=== PATIENT | female | born 1990 | race Caucasian/White ===

== ENCOUNTER 2018-05-19 09:13 | Emergency (ER) | payer OTHER ==
[2018-05-19 09:20] VITALS: BP 128/77
[2018-05-19] MEDS ORDERED: HYDROcodone/APAP 5/325MG 1 TAB TABLET PO ONE (09:45)
[2018-05-19] MEDS ORDERED: PENI500T PO (10:06)
[2018-05-19] MEDS ORDERED: TRAM-48 PO (10:06)
--- NOTE | 2018-05-19 10:06 | PHYS DOC ---
Past History Past Medical History: No Pertinent History Smoking: Cigarettes, Less than 1pk/day Adult General Chief Complaint Chief Complaint: Toothache HPI HPI Patient is a 27 year old female who presents with complaining of tooth pain. Patient states she had a broken left lower tooth 6 days ago while she was at work and has had pain after 1 day as a constant pain that getting worse with chewing and talking. Patient said the pain is sharp and radiated to upper jaw and left ear and had a subjective fever last night. Patient states she has appointment with her dentist in 5 days but her pain was severe and did not get better with [id number] Tylenol and ibuprofen. She smokes cigarettes occasionally. Review of Systems Review of Systems Constitutional: Denies fever or chills [] Eyes: Denies change in visual acuity, redness, or eye pain [] HENT: Denies nasal congestion or sore throat, reports tooth pain [] Respiratory: Denies cough or shortness of breath [] Cardiovascular: No additional information not addressed in HPI [] GI: Denies abdominal pain, nausea, vomiting, bloody stools or diarrhea [] : Denies dysuria or hematuria [] Musculoskeletal: Denies back pain or joint pain [] Integument: Denies rash or skin lesions [] Neurologic: Denies headache, focal weakness or sensory changes [] Endocrine: Denies polyuria or polydipsia [] All other systems were reviewed and found to be within normal limits, except as documented in this note. Current Medications Current Medications Current Medications Medications (Trade) Dose Ordered Sig/Chris Start Time Stop Time Status Last Admin Dose Admin Acetaminophen/ Hydrocodone Bitart (Lortab 5/325) 1 tab 1X ONCE 05/19/18 09:45 05/19/18 10:01 DC 05/19/18 09:58 1 TAB Allergies Allergies Allergies Coded Allergies Type Severity Reaction Last Updated Verified No Known Drug Allergies 05/19/18 No Physical Exam Physical Exam Constitutional: Well developed, well nourished, mild distress, non-toxic appearance. [] HENT: Normocephalic, atraumatic, bilateral external ears normal, oropharynx moist, no oral exudates, nose normal, extensive dental cavities, tooth #18 with fracture and tenderness and edema and erythema of surrounding gum. Eyes: PERRLA, EOMI, conjunctiva normal, no discharge. [] Neck: Normal range of motion, no tenderness, supple, no stridor. [] Cardiovascular:Heart rate regular rhythm, no murmur [] Lungs & Thorax: Bilateral breath sounds clear to auscultation [] Extremities: ROM intact, no edema. [] Neurologic: Alert and oriented X 3, normal motor function, normal sensory function, no focal deficits noted. [] Psychologic: Affect normal, judgement normal, mood normal. [] EKG EKG [] Radiology/Procedures Radiology/Procedures [] Course & Med Decision Making Course & Med Decision Making discharge: I've spoken with the patient and/or caregivers. I've explained the patient's condition, diagnosis and treatment plan based on information available to me at this time. I've answered the patient's and/or caregivers questions and addressed any concerns. The patient and/or caregivers have a good understanding the patient's diagnosis, condition and treatment plan as can be expected at this point. Vital signs have been stabilized. The patient's condition is stable for discharge from the emergency department. The patient will pursue further outpatient evaluation with her primary care provider or other designated consulting physician as outlined in the discharge instructions. Patient and/or caregivers are agreeable to this plan of care and follow-up instructions have been explained in detail. The patient and/or caregivers have received these instructions in written format and expressed understanding of these discharge instructions. The patient and her caregivers are aware that if any significant change in condition or worsening of symptoms should prompt him to immediately return to this of the closest emergency department. If an emergent department is not readily available I would encourage him to call 911. Ellen Disclaimer Dragon Disclaimer This electronic medical record was generated, in whole or in part, using a voice recognition dictation system. Departure Departure: Impression: Primary Impression: Dental abscess Additional Impressions: Tobacco abuse counseling Tobacco abuse Disposition: HOME, SELF-CARE (at 1002) Condition: IMPROVED Referrals: ERYN PETER SEX THERAPIST (PCP) Patient Instructions: Dental Abscess, Dental Caries, Smoking Cessation, Tips For Success Additional Instructions: Quit smoking Follow-up with your dentist as a scheduled in 5 days Return to ER if not getting better Scripts Tramadol Hcl (ULTRAM) 50 Mg Tablet 50 MG PO PRN Q6HRS PRN for PAIN, #20 TAB Prov: JOMAR LOWE MD 05/19/18 Penicillin V Potassium (PENICILLIN V POTASSIUM) 500 Mg Tablet 1 TAB PO QID for Infection, #40 TAB Prov: JOMAR LOWE MD 05/19/18 Problem Qualifiers JOMAR LOWE MD May 19, 2018 10:06
== END 2018-05-19 10:10 | disposition home or self-care (01) ==
LOC: ER 09:13
DX: K04.7 Periapical abscess without sinus (principal); F17.210 Nicotine dependence, cigarettes, uncomplicated; Z71.6 Tobacco abuse counseling
CPT/HCPCS: 99283

== ENCOUNTER 2018-09-14 12:49 | Emergency (ER) | payer BC, OTHER ==
[~2018-09-14] VITALS: Ht 175.3 cm; Wt 77.1 kg
[~2018-09-14 12:49] MED LIST: PENI500T PO; TRAM-48 PO
[2018-09-14 12:57] VITALS: BP 139/78
[2018-09-14] MEDS ORDERED: HYDR-2765 PO (13:06)
[2018-09-14] MEDS ORDERED: LIDO15SO2 MM (13:07)
[2018-09-14] MEDS ORDERED: CLIN300C8 PO (13:07)
--- NOTE | 2018-09-14 13:07 | PHYS DOC ---
Past History Past Medical History: No Pertinent History Past Surgical History: No Surgical History Smoking: Cigarettes, Less than 1pk/day Alcohol Use: None Drug Use: None Adult General Chief Complaint Chief Complaint: TOOTH ACHE OR PAIN [facility] Patient is a 28-year-old female who presents with complaint of dental fracture and tooth pain after cracking her tooth while eating chicken last night. She states that initially it was not very painful but then through the night pain progressively got worse. She rates pain as fairly severe especially if she tries to eat or drink anything. Review of Systems Review of Systems Constitutional: Denies fever or chills [] HENT: Positive dental pain[] Respiratory: Denies cough or shortness of breath [] Cardiovascular: No additional information not addressed in [facility] [] Allergies Allergies Allergies Coded Allergies Type Severity Reaction Last Updated Verified No Known Drug Allergies 05/19/18 No Physical Exam Physical Exam Constitutional: Well developed, well nourished, no acute distress, non-toxic appearance. [] HENT: Normocephalic, atraumatic. His immunization and teeth demonstrates fracture through the lateral aspect of the second mandibular molar on the right. [] Neck: Normal range of motion, no tenderness, supple, no stridor. [] Cardiovascular:Heart rate regular rhythm, no murmur [] Lungs & Thorax: Bilateral breath sounds clear to auscultation [] EKG EKG [] Radiology/Procedures Radiology/Procedures [] Course & Med Decision Making Course & Med Decision Making Pertinent Labs and Imaging studies reviewed. (See chart for details) [] Dragon Disclaimer Dragon Disclaimer This electronic medical record was generated, in whole or in part, using a voice recognition dictation system. Departure Departure: Impression: Primary Impression: Tooth fracture Additional Impression: Pain, dental Disposition: HOME, SELF-CARE Condition: STABLE Referrals: ERYN PETER LEAD SOFTWARE QA ENGINEER (PCP) Patient Instructions: Dental Extraction, Care After, Dental Pain Scripts Clindamycin Hcl (CLINDAMYCIN HCL) 300 Mg Capsule 1 CAP PO TID for prevent infection, #30 CAP Prov: EFRAIN AGUERO Jr. DO 09/14/18 Lidocaine HCl (Lidocaine HCl Viscous) 15 Ml Solution 1 ML MM Q2HR PRN for PAIN, #100 ML Prov: EFRAIN AGUERO Jr. DO 09/14/18 Hydrocodone Bit/Acetaminophen (HYDROCODONE-APAP 7.5-325 ) 1 Each Tablet 1 TAB PO PRN Q6HRS PRN for PAIN, #15 TAB 0 Refills Prov: EFRAIN AGUERO Jr. DO 09/14/18 Problem Qualifiers Primary Impression: Tooth fracture Encounter type: initial encounter Fracture type: closed Qualified Codes: S02.5XXA - Fracture of tooth (traumatic), initial encounter for closed fracture EFRAIN AGUERO Jr., DO September 14, 2018 13:07
== END 2018-09-14 13:15 | disposition home or self-care (01) ==
LOC: ER 12:49
DX: S02.5XXA Fracture of tooth (traumatic), initial encounter for closed fracture (principal); F17.210 Nicotine dependence, cigarettes, uncomplicated; X58.XXXA Exposure to other specified factors, initial encounter; Y93.89 Activity, other specified; Y92.89 Other specified places as the place of occurrence of the external cause; Y99.8 Other external cause status
CPT/HCPCS: 99283

== ENCOUNTER 2019-05-04 22:29 | Emergency (ER) | payer OTHER ==
[~2019-05-04] VITALS: Ht 175.3 cm; Wt 80.3 kg
[~2019-05-04 22:29] MED LIST changes: +CLIN300C8 PO; +HYDR-2765 PO; +LIDO15SO2 MM
--- NOTE | 2019-05-04 22:43 | PHYS DOC ---
Past History Past Medical History: No Pertinent History Past Surgical History: No Surgical History Smoking: Cigarettes, Less than 1pk/day Alcohol Use: None Drug Use: None Adult General Chief Complaint Chief Complaint: left chest wall pain [facility] 28-year-old female presents with left chest wall pain and cough. She has had a cough for several days. Today her cough seemed to be worse and she has developed a left sided chest wall pain. She tells me the pain is basically in the lateral part of her breast. It is somewhat tender to palpation, but hurts mostly with co ughing. She has been coughing up a slightly blood-tinged sputum. She wants to make sure she doesn't have pneumonia or some other significant problem. She denies shortness of breath, fever or chills. Review of Systems Review of Systems Constitutional: Denies fever or chills [] Eyes: Denies change in visual acuity, redness, or eye pain [] HENT: Denies nasal congestion or sore throat [] Respiratory: Denies cough or shortness of breath [] Cardiovascular: No additional information not addressed in HPI [] GI: Denies abdominal pain, nausea, vomiting, bloody stools or diarrhea [] : Denies dysuria or hematuria [] Musculoskeletal: Left chest wall pain[] Integument: Denies rash or skin lesions [] Neurologic: Denies headache, focal weakness or sensory changes [] Endocrine: Denies polyuria or polydipsia [] All other systems were reviewed and found to be within normal limits, except as documented in this note. Allergies Allergies Allergies Coded Allergies Type Severity Reaction Last Updated Verified No Known Drug Allergies 05/19/18 No Physical Exam Physical Exam Constitutional: Well developed, well nourished, no acute distress, non-toxic maddie earance. [] HENT: Normocephalic, atraumatic, bilateral external ears normal, oropharynx moist, no oral exudates, nose congested. [] Eyes: PERRLA, EOMI, conjunctiva normal, no discharge. [] Neck: Normal range of motion, no tenderness, supple, no stridor. [] Cardiovascular:Heart rate regular rhythm, no murmur [] Lungs & Thorax: Mild tenderness of the left lateral chest wall and lateral breast. Bilateral breath sounds clear to auscultation [] Abdomen: Bowel sounds normal, soft, no tenderness, no masses, no pulsatile masses. [] Skin: Warm, dry, no erythema, no rash. [] Back: No tenderness, no CVA tenderness. [] Extremities: No tenderness, no cyanosis, no clubbing, ROM intact, no edema. [] Neurologic: Alert and oriented X 3, normal motor function, normal sensory function, no focal deficits noted. [] Psychologic: Affect normal, judgement normal, mood normal. [] EKG EKG [] Radiology/Procedures Radiology/Procedures [] Impressions: Preliminary interpretation chest x-ray: There doesn't scattered hyperdensity in the lung nick and also developing consolidation in the right lower lobe. Course & Med Decision Making Course & Med Decision Making Pertinent Labs and Imaging studies reviewed. (See chart for details) The patient's chest x-ray could be consistent with atypical pneumonia. I will go and treat her with azithromycin for 5 days. We will give the first dose in the emergency room. She is stable for discharge at this time. [] Dragon Disclaimer Dragon Disclaimer This electronic medical record was generated, in whole or in part, using a voice recognition dictation system. Departure Departure: Impression: Primary Impression: Pneumonia Disposition: HOME/RESIDENCE PRIOR TO ADM Condition: STABLE Referrals: ERYN PETER CONTINUOUS CHURN BUTTERMAKER (PCP) Patient Instructions: Pneumonia, Adult, [id number] Scripts Azithromycin (AZITHROMYCIN TABLET) 250 Mg Tablet 250 MG PO DAILY for ANTI-BIOTIC for 4 Days, #4 TAB 0 Refills Prov: LAUREEN GRIFFIN DO 05/04/19 Problem Qualifiers Primary Impression: Pneumonia Pneumonia type: due to unspecified organism Laterality: right Lung location: lower lobe of lung Qualified Codes: J18.9 - Pneumonia, unspecified organism LAUREEN GRIFFIN DO May 04, 2019 22:43
[2019-05-04] MEDS ORDERED: AZIT250T6 PO (23:17)
--- NOTE | 2019-05-04 23:22 | RAD ---
Exam: Chest 2 views INDICATION: Chest pain TECHNIQUE: Frontal and lateral views the chest Comparisons: None FINDINGS: The cardiomediastinal silhouette and pulmonary vessels are within normal limits. The lung and pleural spaces are clear. IMPRESSION: No acute cardiopulmonary process. Electronically signed by: Goyo Roldan MD (05/04/2019 11:20 PM) [facility]
[2019-05-04 23:29] VITALS: BP 112/55
[2019-05-04] MEDS ORDERED: AZITHROMYCIN 250 MG TABLET. PO ONE (23:30)
== END 2019-05-04 23:29 | disposition home or self-care (01) ==
LOC: ER 22:29
DX: J18.9 Pneumonia, unspecified organism (principal); F17.210 Nicotine dependence, cigarettes, uncomplicated
CPT/HCPCS: 71046; 99284; J0456

== ENCOUNTER 2019-05-22 09:01 | Emergency (ER) | payer OTHER ==
[~2019-05-22] VITALS: Ht 175.3 cm; Wt 81.3 kg
[~2019-05-22 09:01] MED LIST changes: +AZIT250T6 PO
--- NOTE | 2019-05-22 09:50 | RAD ---
Chest radiograph 05/22/2019 9:13 AM INDICATION: Cough with left-sided rib pain COMPARISON: 05/04/2019 TECHNIQUE: Frontal and lateral views of the chest are provided. FINDINGS: The cardiomediastinal silhouette is within normal limits. There are no pleural effusions. There is no pulmonary vascular congestion. There is no pneumothorax. Mild interstitial prominence in the right lower lobe could reflect bronchial wall thickening associated with bronchitis. No significant osseous abnormality is identified. IMPRESSION: Findings are suggestive of mild bronchitis. No new airspace consolidation. Electronically signed by: Tiffanie Dawn MD (05/22/2019 9:47 AM) [id number]
[2019-05-22] MEDS ORDERED: AZIT250T PO (09:59)
--- NOTE | 2019-05-22 09:59 | PHYS DOC ---
Past History Past Medical History: Pneumonia Additional Past Medical Histor: cat scratch fever, shingles Past Surgical History: No Surgical History Additional Past Surgical Histo: lymphnoidectomy in neck Smoking: Cigarettes, Less than 1pk/day Additional Smoking Information: quit 2 yrs ago Alcohol Use: None Drug Use: None Adult General Chief Complaint Chief Complaint: CHEST PAIN-NON CARDIAC NATURE HPI HPI Patient is a 28-year-old female who presented to ER today for evaluation of productive cough with yellow sputum, symptoms started last night , she coughed so much that she started having pain on left side rib. Patient denies any recent travel, no recent operation, she does not smoke. Patient denies any history of blood clot disorder. All other ROS is negative unless otherwise noted in HPI Review of Systems Review of Systems See above Allergies Allergies Allergies Coded Allergies Type Severity Reaction Last Updated Verified No Known Drug Allergies 05/22/19 No Physical Exam Physical Exam See above Constitutional: Well developed, well nourished, no acute distress, non-toxic appearance. [] HENT: Normocephalic, atraumatic, bilateral external ears normal, oropharynx moist, no oral exudates, nose normal. [] Eyes: PERRLA, EOMI, conjunctiva normal, no discharge. [] Neck: Normal range of motion, no tenderness, supple, no stridor. [] Cardiovascular:Heart rate regular rhythm, no murmur [] Lungs & Thorax: Bilateral breath sounds clear to auscultation [] Abdomen: Bowel sounds normal, soft, no tenderness, no masses, no pulsatile masses. [] Skin: Warm, dry, no erythema, no rash. [] Back: No tenderness, no CVA tenderness. [] Extremities: No tenderness, no cyanosis, no clubbing, ROM intact, no edema. [] Neurologic: Alert and oriented X 3, normal motor function, normal sensory function, no focal deficits noted. [] Psychologic: Affect normal, judgement normal, mood normal. [] Current Patient Data Vital Signs Vital Signs Date Time Temp Pulse Resp B/P (MAP) Pulse Ox O2 Delivery O2 Flow Rate FiO2 05/22/19 09:08 98.4 70 20 97 Room Air EKG EKG [] Radiology/Procedures Radiology/Procedures [][address] [address] IMAGING REPORT Signed PATIENT: TOD YOUNG ACCOUNT: [id number] : 1990 LOCATION: ER AGE: 28 SEX: F EXAM STATUS: REG ER ORD. PHYSICIAN: DOROTHY KAT DO REASON: cough, left side ribs pain PROCEDURE: CHEST PA & LATERAL Chest radiograph 05/22/2019 9:13 AM INDICATION: Cough with left-sided rib pain COMPARISON: 05/04/2019 TECHNIQUE: Frontal and lateral views of the chest are provided. FINDINGS: The cardiomediastinal silhouette is within normal limits. There are no pleural effusions. There is no pulmonary vascular congestion. There is no pneumothorax. Mild interstitial prominence in the right lower lobe could reflect bronchial wall thickening associated with bronchitis. No significant osseous abnormality is identified. IMPRESSION: Findings are suggestive of mild bronchitis. No new airspace consolidation. Electronically signed by: Kunal Blanco MD (05/22/2019 9:47 AM) [facility] DICTATED AND SIGNED BY: KUNAL BLANCO MD DATE: 05/22/19946 CC: ERYN PETER FRUIT AND VEGETABLE PACKER; DOROTHY KAT DO ~ Course & Med Decision Making Course & Med Decision Making Pertinent Labs and Imaging studies reviewed. (See chart for details) [] Dragon Disclaimer Dragon Disclaimer This electronic medical record was generated, in whole or in part, using a voice recognition dictation system. Departure Departure: Impression: Primary Impression: Bronchitis Disposition: HOME, SELF-CARE Condition: STABLE Referrals: ERYN PETER NP (PCP) follow up with your doctor sunday for reevaluation Patient Instructions: Acute Bronchitis Scripts Azithromycin (ZITHROMAX) 250 Mg Tablet 1 PKG PO UD for bronchitis, #6 TAB Prov: DOROTHY KAT DO 05/22/19 DOROTHY KAT DO May 22, 2019 09:59
[2019-05-22 10:08] VITALS: BP 128/70
== END 2019-05-22 10:10 | disposition home or self-care (01) ==
LOC: ER 09:01
DX: J40 Bronchitis, not specified as acute or chronic (principal); F17.210 Nicotine dependence, cigarettes, uncomplicated
CPT/HCPCS: 71046; 99284

== ENCOUNTER 2019-06-22 18:52 | Emergency (ER) | payer OTHER ==
[~2019-06-22] VITALS: Ht 175.3 cm; Wt 80.0 kg
[~2019-06-22 18:52] MED LIST changes: +AZIT250T PO; -LIDO15SO2 MM; +LIDO20SO10 MM
--- NOTE | 2019-06-22 18:54 | PHYS DOC ---
Past History Past Medical History: Pneumonia Additional Past Medical Histor: cat scratch fever, shingles Past Surgical History: No Surgical History Additional Past Surgical Histo: lymphnoidectomy in neck Smoking: Cigarettes, Less than 1pk/day Alcohol Use: None Drug Use: None Adult General Chief Complaint Chief Complaint: ".. I got a dental apt. on .. It fracture last week.. they started me on antibiotics.. and I completed them... but pain is again worse.. and got swelling.. " HPI HPI Patient is a 28 year old female who presents with above hx and complaints of fractured molar 32, with surrounding inflammation, facial cellulitis and adeno deyanira at angle Rt. mandible. Pt. has follow up . Pt. has no trismus. Patient has no history immunosuppression, travel, specific ill contacts. Patient does smoke tobacco. Review of Systems Review of Systems Constitutional: Denies fever or chills [] Eyes: Denies change in visual acuity, redness, or eye pain [] HENT: Denies nasal congestion or sore throat []complaints of dental pain and facial swelling Respiratory: Denies cough or shortness of breath [] Cardiovascular: No additional information not addressed in HPI [] GI: Denies abdominal pain, nausea, vomiting, bloody stools or diarrhea [] : Denies dysuria or hematuria [] Musculoskeletal: Denies back pain or joint pain [] Integument: Denies rash or skin lesions [] Neurologic: Denies headache, focal weakness or sensory changes [] Endocrine: Denies polyuria or polydipsia [] All other systems were reviewed and found to be within normal limits, except as documented in this note. Family History Family History Noncontributory Current Medications Current Medications See nursing for home meds Allergies Allergies Allergies Coded Allergies Type Severity Reaction Last Updated Verified No Known Drug Allergies 05/22/19 No Physical Exam Physical Exam Constitutional: In acute distress, non-toxic appearance. [] HENT: Normocephalic, bilateral external ears normal, oropharynx moist, no oral exudates, nose normal. []Fraction and decay tooth at 32. Adenopathy at ankle jaw. Facial swelling. Eyes: PERRLA, EOMI, conjunctiva normal, no discharge. [] Neck: Normal range of motion, no tenderness, supple, no stridor. [] Cardiovascular:Heart rate regular rhythm, no murmur [] Lungs & Thorax: Bilateral breath sounds equal apex scattered wheezes on auscultation [] Abdomen: Bowel sounds normal, soft, no tenderness, no masses, no pulsatile masses. [] Skin: Warm, dry, no erythema, no rash. [] Back: No tenderness, no CVA tenderness. [] Extremities: No tenderness, no cyanosis, no clubbing, ROM intact, no edema. [] Neurologic: Alert and oriented X 3, normal motor function, normal sensory function, no focal deficits noted. [] Psychologic: Affect anxious, judgement normal, mood normal. [] EKG EKG [] Radiology/Procedures Radiology/Procedures [] Course & Med Decision Making Course & Med Decision Making Pertinent Labs and Imaging studies reviewed. (See chart for details), Patient rinse mouth with Listerine 4 times a day. Patient must keep follow-up with oral surgeon or dentist. Take Tylenol and ibuprofen for pain. For marked pain may take Vicoprofen up 4 times a day. Take Keflex 500 mg 3 times a day. She encouraged to stop smoking. Impression; 1. Dental pain 2. Fractured tooth [id number] 3. Facial Cellulitis [] Dragon Disclaimer Dragon Disclaimer This electronic medical record was generated, in whole or in part, using a voice recognition dictation system. Departure Departure: Disposition: 01 HOME/RESIDENCE PRIOR TO ADM Condition: STABLE Referrals: ERYN PETER STRATEGIC DEBRIEFING SPECIALIST (PCP) Scripts Cephalexin (KEFLEX) 500 Mg Capsule 500 MG PO TID for dental infection for 10 Days, BOTTLE Prov: CAYLA YEN MD 06/22/19 Hydrocodone/Ibuprofen (HYDROCODONE-IBUPROFEN 7.5-200 ) 1 Each Tablet 1 TAB PO PRN Q6HRS PRN for PAIN, #30 TAB 0 Refills Prov: CAYLA YEN MD 06/22/19 Dragkaye Disclaimer This chart was dictated in whole or in part using Voice Recognition software in a busy, high-work load, and often noisy Emergency Department environment. It may contain unintended and wholly unrecognized errors or omissions. CAYLA YEN MD Jun 22, 2019 18:54
[2019-06-22 19:03] VITALS: BP 112/70
[2019-06-22] MEDS ORDERED: HYDR-1179 PO (19:08)
[2019-06-22] MEDS ORDERED: CEPH-264 PO (19:08)
[2019-06-22] MEDS ORDERED: cefTRIAXone IM 1 GM VIAL IM ONE (19:15)
[2019-06-22] MEDS ORDERED: KETOROLAC 60 MG/2 ML VIAL. IM ONE (19:45)
[2019-06-22 20:07] LABS: BACTERIA,URINE FEW /HPF (0-FEW); BILIRUBIN,URINE NEG (NEG); CLARITY,URINE HAZY; COLOR,URINE AMBER; GLUCOSE,URINE NEG (NEG); NITRITE,URINE NEG (NEG); SQUAMOUS EPITHELIAL CELL,UR MANY /LPF; UROBILINOGEN,URINE 0.2 mg/dL (0.2 mg/dL); WBC,URINE 0 /HPF (0-4)
[2019-06-22 20:13] LABS: BARBITURATES NEG (NEG); BENZODIAZEPINES NEG (NEG); CANNABINOIDS NEG (NEG); COCAINE NEG (NEG); METHADONE NEG (NEG); OPIATES NEG (NEG); PHENCYCLIDINE NEG (NEG)
[2019-06-22 20:15] LABS: AMPHETAMINE/METHAMPHETAMINE NEG (NEG)
== END 2019-06-22 19:59 | disposition home or self-care (01) ==
LOC: ER 18:52
DX: S02.5XXA Fracture of tooth (traumatic), initial encounter for closed fracture (principal); L03.211 Cellulitis of face; F17.210 Nicotine dependence, cigarettes, uncomplicated; X58.XXXA Exposure to other specified factors, initial encounter; Y93.89 Activity, other specified; Y92.89 Other specified places as the place of occurrence of the external cause; Y99.8 Other external cause status
CPT/HCPCS: 36415; 80307; 81001; 81025; 96372; 99284; J0696; J1885

== ENCOUNTER 2019-10-24 20:35 | Emergency (ER) | payer OTHER ==
[~2019-10-24] VITALS: Ht 175.3 cm; Wt 79.2 kg
[~2019-10-24 20:35] MED LIST changes: +CEPH-264 PO; +HYDR-1179 PO
--- NOTE | 2019-10-24 20:40 | PHYS DOC ---
Past History Past Medical History: Pneumonia, Other Additional Past Medical Histor: cat scratch fever, shingles Past Surgical History: No Surgical History Additional Past Surgical Histo: lymphnoidectomy in neck Smoking: Cigarettes, Less than 1pk/day Alcohol Use: None Drug Use: None General Adult HPI: HPI: ".. I am not sure whats going on.. I got a negative test.. but I ve been bleeding ever since my last period.. been bleeding for three weeks now.. almost like a period.. .and for last week. ..I ve had bad abdomen pain.. I cant get in to see my CREATIVE CONSULTANT ... Dr. Peter... ".." until the end of November..." Patient is a 29 year old female who presents with above hx and complaints of dysfunctional vaginal bleeding x 3 weeks. Pt. denies previous history of dysfunctional uterine bleeding. No history of ovarian cyst or endometriosis. Patient rates her abdomen pain 20 out of 10 which is been present for the last week. Does to pelvic exams regularly since uterine cancer runs in her family. Patient did get HPV vaccination with last pregnancies she has had 6 pregnancies and 1 miscarriage. Vaginal births.x5. Patient denies any history use of anti- coagulants or [id number] health meds that may increase bleeding. Patient last approximately 2 years ago. Patient has had 5 lifetime sex partn ers. No history of STDs. No history of trauma. No history immune suppression. No history of recent travel outside the [place] area. No specific ill contacts. Pt .follows with Dr. Peter . Review of Systems: Review of Systems: Constitutional: Denies fever or chills Eyes: Denies change in visual acuity HENT: Denies nasal congestion or sore throat Respiratory: Denies cough or shortness of breath Cardiovascular: Denies chest pain or edema GI: Complains of abdominal pain and vaginal bleeding. Denies, nausea, vomiting, bloody stools or diarrhea : Denies dysuria Musculoskeletal: Denies back pain or joint pain Integument: Denies rash Neurologic: Denies headache, focal weakness or sensory changes Endocrine: Denies polyuria or polydipsia Lymphatic: Denies swollen glands Psychiatric: Denies depression or anxiety Heart Score: Risk Factors: Risk Factors: DM, Current or recent (<one month) smoker, HTN, HLP, family history of CAD, obesity. Risk Scores: Score 0 - 3: 2.5% MACE over next 6 weeks - Discharge Home Score 4 - 6: 20.3% MACE over next 6 weeks - Admit for Clinical Observation Score 7 - 10: 72.7% MACE over next 6 weeks - Early Invasive Strategies Family History: Family History: Uterine cancer and cervical cancer in mother and sister. Current Medications: Current Meds: See nursing for home meds Allergies: Allergies: Allergies Coded Allergies Type Severity Reaction Last Updated Verified No Known Drug Allergies 05/22/19 No Physical Exam: PE: Constitutional: in acute distress, non-toxic appearance. [] HENT: Normocephalic, atraumatic, bilateral external ears normal, oropharynx moist, no oral exudates, nose normal. [] Eyes: PERRLA, EOMI, conjunctiva normal, no discharge. [] Neck: Normal range of motion, no tenderness, supple, no stridor. [] Cardiovascular:Heart rate regular rhythm, no murmur [] Lungs & Thorax: Bilateral breath sounds equal at apexes with few basilar wheezes on auscultation [] Abdomen: Bowel sounds normal, soft, pelvic tenderness, no masses, no pulsatile masses. [] Cervical motion tenderness, blood coming from os. Boggy cervix. Skin: Warm, dry, no erythema, no rash. Tattoos. Back: No tenderness, no CVA tenderness. [] Extremities: No tenderness, no cyanosis, no clubbing, ROM intact, no edema. [] Neurologic: Alert and oriented X 3, normal motor function, normal sensory function, no focal deficits noted. [] Psychologic: Affect normal, judgement normal, mood normal. [] EKG: EKG: [] Radiology/Procedures: Radiology/Procedures: [][address] [address] IMAGING REPORT Signed PATIENT: TOD YOUNG ACCOUNT: [id number] : 1990 LOCATION: ER AGE: 29 SEX: F EXAM STATUS: REG ER ORD. PHYSICIAN: CAYLA YEN MD REASON: Abdomen pain x 1 week, vaginal bleeding x 3 weeks PROCEDURE: CT ABD PELV W/ORAL&IV CONTRAST Study: CT abdomen/pelvis with intravenous contrast Indication: Abdominal pain. Vaginal bleeding. Comparison: None. Technique: Helical CT imaging performed of the abdomen and pelvis after the intravenous administration of 74 cc Omnipaque 300 contrast. Sagittal and coronal reformats were obtained. One or more of the following individualized dose reduction techniques were utilized for this examination: 1. Automated exposure control 2. Adjustment of the mA and/or kV according to patient size 3. Use of iterative reconstruction technique. Findings: Unremarkable visualized chest. The liver is prominent in size. Upper limits of normal size of the spleen as well. Unremarkable adrenal glands and pancreas. Mild gallbladder wall thickening but this could be related to partial collapse. No calcified gallstones. Normal caliber of the biliary tree. Unremarkable kidneys. No hydroureteronephrosis. Circumferential wall thickening of the urinary bladder that is mild likely in part related to underdistention. Heterogeneous attenuation and a somewhat expanded appearance of the uterine cervix such as seen on image 35 series 4. The vaginal cuff appears somewhat edematous as well and there is thin enhancement along the vaginal wall. No dominant ovarian cyst or mass. The right ovary is slightly larger than left but within normal limits for size. Mild volume well-formed stool within the colon. Normal appendix. Within normal limits small bowel and stomach. Unremarkable major vasculature. No pathologically enlarged lymph nodes. Mild haziness of the fat surrounding the right ovary, along the uterine cervix and vaginal cuff. Trace if any free pelvic fluid. Within normal limits osseous structures. Impression: 1. Boggy appearance of the uterine cervix and vaginal cuff with heterogeneous attenuation in these regions. There is also a greater degree of enhancement along the vaginal wall than typically seen. Mild asymmetric prominence of the right ovary relative to the left. The collective appearance is nonspecific and could be be related to the patient's menstrual stage but an infectious process such as pelvic inflammatory disease/cervicitis is not excluded. 2. Upper limits of normal size of the liver and spleen. 3. Borderline wall thickening of the gallbladder but this could be related to underdistention and there are no calcified gallstones or additional findings that would suggest acute cholecystitis. Electronically signed by: GOOD HINES MD (10/24/2019 11:09 PM) [id number] DICTATED AND SIGNED BY: GOOD HINES MD DATE: 10/24/19 2309 CC: ERYN PETER EXECUTIVE DIRECTOR [employer]; CAYLA YEN MD ~ Course & Med Decision Making: Course & Med Decision Making Pertinent Labs and Imaging studies reviewed. (See chart for details) Continue pad counts. Follow up pending FSH, Progesterone, TSH levels with primary and CREATIVE CONSULTANT. Advised she may need at endometrial biopsy. May also need a course of control. Must follow-up and review labs with primary care. T ada Keflex 500x3 times a day. Practice safe sex and pelvic rest. May need course of oral control . Note: Pt. left with Vicoprofen Rx. Impression: 1. Dysfunctional Uterine Bleeding 2. Cervicitis 3. Pelvic Pain [] Dragon Disclaimer: Dragon Disclaimer: This electronic medical record was generated, in whole or in part, using a voice recognition dictation system. Departure Departure: Disposition: HOME/RESIDENCE PRIOR TO ADM Condition: STABLE Referrals: ERYN PETER EXECUTIVE DIRECTOR [employer] (PCP) Scripts Hydrocodone/Ibuprofen (HYDROCODONE-IBUPROFEN 7.5-200 ) 1 Each Tablet 1 TAB PO PRN Q6HRS PRN for PAIN, #30 TAB 0 Refills Prov: CAYLA YEN MD 10/25/19 Cephalexin (KEFLEX) 500 Mg Capsule 500 MG PO TID for cervicitis for 10 Days, #30 CAP Prov: CAYLA YEN MD 10/24/19 Justification of Admission: Justification of Admission: Justification of Admission Dx: N/A Dragon Disclaimer This chart was dictated in whole or in part using Voice Recognition software in a busy, high-work load, and often noisy Emergency Department environment. It may contain unintended and wholly unrecognized errors or omissions. Dragon Disclaimer This chart was dictated in whole or in part using Voice Recognition software in a busy, high-work load, and often noisy Emergency Department environment. It may contain unintended and wholly unrecognized errors or omissions. Dragon Disclaimer This chart was dictated in whole or in part using Voice Recognition software in a busy, high-work load, and often noisy Emergency Department environment. It may contain unintended and wholly unrecognized errors or omissions. CAYLA YEN MD Oct 24, 2019 20:40
[2019-10-24 21:13] LABS: BARBITURATES NEG (NEG); BENZODIAZEPINES NEG (NEG); CANNABINOIDS NEG (NEG); COCAINE NEG (NEG); METHADONE NEG (NEG); OPIATES NEG (NEG); PHENCYCLIDINE NEG (NEG)
[2019-10-24 21:16] LABS: CLARITY,URINE BLOODY; COLOR,URINE RED
[2019-10-24 21:18] LABS: BACTERIA,URINE 0 /HPF (0-FEW); RBC,URINE TNTC /HPF (0-2); SQUAMOUS EPITHELIAL CELL,UR MOD /LPF; WBC,URINE OCC /HPF (0-4)
[2019-10-24 21:20] LABS: AMPHETAMINE/METHAMPHETAMINE NEG (NEG)
[2019-10-24] MEDS ORDERED: IOHEXOL 240 MG/ML 50ML VIAL. PO ONE (21:30)
[2019-10-24] MEDS ORDERED: IOHEXOL 300 MG/ML 75 ML VIAL. IV ONE (21:30)
[2019-10-24 21:36] LABS: BASO # 0.1 x10^3/uL (0.0-0.2); BASO % 1 % (0-3); EOS # 0.4 x10^3/uL (0.0-0.7); EOS % 4 % (0-3); HEMATOCRIT 41.9 % (36.0-47.0); HEMOGLOBIN 14.1 g/dL (12.0-15.5); LYMPH % 32 % (24-48); MEAN CORPUSCULAR HEMOGLOBIN 30 pg (25-35); MEAN CORPUSCULAR HGB CONC 34 g/dL (31-37); MEAN CORPUSCULAR VOLUME 90 fL (79-100); MONO # 0.6 x10^3/uL (0.0-1.1); MONO % 6 % (0-9); NEUT # 5.3 x10^3uL (1.8-7.7); NEUT % 57 % (31-73); PLATELET COUNT 274 x10^3/uL (140-400); RED BLOOD COUNT 4.68 x10^6/uL (3.50-5.40); RED CELL DISTRIBUTION WIDTH 13.2 % (11.5-14.5); WHITE BLOOD COUNT 9.4 x10^3/uL (4.0-11.0)
[2019-10-24 21:43] LABS: CALCIUM 8.9 mg/dL (8.5-10.1); CREATININE 0.8 mg/dL (0.6-1.0); POTASSIUM 3.8 mmol/L (3.5-5.1)
[2019-10-24 21:49] LABS: ALBUMIN 3.8 g/dL (3.4-5.0); DIRECT BILIRUBIN 0.1 mg/dL (0.0-0.2); TOTAL BILIRUBIN 0.2 mg/dL (0.2-1.0); TOTAL PROTEIN 7.7 g/dL (6.4-8.2)
--- NOTE | 2019-10-24 23:12 | RAD ---
Study: CT abdomen/pelvis with intravenous contrast Indication: Abdominal pain. Vaginal bleeding. Comparison: None. Technique: Helical CT imaging performed of the abdomen and pelvis after the intravenous administration of 74 cc Omnipaque 300 contrast. Sagittal and coronal reformats were obtained. One or more of the following individualized dose reduction techniques were utilized for this examination: 1. Automated exposure control 2. Adjustment of the mA and/or kV according to patient size 3. Use of iterative reconstruction technique. Findings: Unremarkable visualized chest. The liver is prominent in size. Upper limits of normal size of the spleen as well. Unremarkable adrenal glands and pancreas. Mild gallbladder wall thickening but this could be related to partial collapse. No calcified gallstones. Normal caliber of the biliary tree. Unremarkable kidneys. No hydroureteronephrosis. Circumferential wall thickening of the urinary bladder that is mild likely in part related to underdistention. Heterogeneous attenuation and a somewhat expanded appearance of the uterine cervix such as seen on image 35 series 4. The vaginal cuff appears somewhat edematous as well and there is thin enhancement along the vaginal wall. No dominant ovarian cyst or mass. The right ovary is slightly larger than left but within normal limits for size. Mild volume well-formed stool within the colon. Normal appendix. Within normal limits small bowel and stomach. Unremarkable major vasculature. No pathologically enlarged lymph nodes. Mild haziness of the fat surrounding the right ovary, along the uterine cervix and vaginal cuff. Trace if any free pelvic fluid. Within normal limits osseous structures. Impression: 1. Boggy appearance of the uterine cervix and vaginal cuff with heterogeneous attenuation in these regions. There is also a greater degree of enhancement along the vaginal wall than typically seen. Mild asymmetric prominence of the right ovary relative to the left. The collective appearance is nonspecific and could be be related to the patient's menstrual stage but an infectious process such as pelvic inflammatory disease/cervicitis is not excluded. 2. Upper limits of normal size of the liver and spleen. 3. Borderline wall thickening of the gallbladder but this could be related to underdistention and there are no calcified gallstones or additional findings that would suggest acute cholecystitis. Electronically signed by: GOOD HINES MD (10/24/2019 11:09 PM) [id number]
[2019-10-24] MEDS ORDERED: AZITHROMYCIN 250 MG TABLET. PO ONE (23:30)
[2019-10-24] MEDS ORDERED: ONDANSETRON PF 4 MG/2 ML VIAL. IVP ONE (23:30)
[2019-10-24] MEDS ORDERED: metroNIDAZOLE 500 MG TABLET PO ONE (23:30)
[2019-10-24] MEDS ORDERED: CEPH-264 PO (23:34)
[2019-10-24] MEDS ORDERED: cefTRIAXone SODIUM 1 GM VIAL ONE (23:37)
[2019-10-24] MEDS ORDERED: IV NORMAL SALINE 50ML 50 ML ONE (23:37)
[2019-10-24] MEDS ORDERED: MORPHINE SULFATE 10 MG/ML SYRINGE. SQ ONE (23:45)
[2019-10-25 00:26] VITALS: BP 104/63
[2019-10-25] MEDS ORDERED: HYDR-1179 PO (00:54)
[2019-10-25 15:08] LABS: FSH 6.7 mIU/mL (.); PROGESTERONE <0.1 ng/mL (.)
[2019-10-27 18:07] LABS: CHLAMYDIA PROBE Negative (Negative)
== END 2019-10-25 01:00 | disposition home or self-care (01) ==
LOC: ER 20:35
DX: N93.8 Other specified abnormal uterine and vaginal bleeding (principal); N72 Inflammatory disease of cervix uteri; F17.210 Nicotine dependence, cigarettes, uncomplicated
CPT/HCPCS: 36415; 74177; 80048; 80076; 80307; 81001; 81025; 83001; 84144; 84146; 84443; 84702; 85025; 85610; 85730; 86850; 86900; 86901; 87491; 87591; 96365; 96372; 96375; 99285; J0456; J0696; J2270; J2405; Q0111; Q9966; Q9967

== ENCOUNTER 2020-03-16 19:06 | Emergency (ER) | payer OTHER ==
[~2020-03-16] VITALS: Ht 175.3 cm; Wt 67.8 kg
[2020-03-16 19:20] VITALS: BP 112/67
[2020-03-16] MEDS ORDERED: HYDR-3165 PO (19:36)
[2020-03-16] MEDS ORDERED: PENI500T PO (19:36)
--- NOTE | 2020-03-16 19:38 | PHYS DOC ---
Past History Past Medical History: Cancer, Pneumonia, Other Additional Past Medical Histor: cat scratch fever, shingles Past Surgical History: Other Additional Past Surgical Histo: lymphnoidectomy in neck Smoking: Cigarettes, Less than 1pk/day Alcohol Use: Rarely Drug Use: None Adult General Chief Complaint Chief Complaint: DENTAL PROBLEM HPI HPI Patient is a 29-year-old female currently undergoing chemotherapy and radiation for ovarian and cervical cancer presents to the emergency room with complaints of left upper dental pain. She has an appointment next Sunday with a dentist. Was just cleared by her oncologist to start dental work. She reports bit down on something and the pain has worsened today. Review of Systems Review of Systems Constitutional: Denies fever or chills [] Eyes: Denies change in visual acuity, redness, or eye pain [] HENT: Denies nasal congestion or sore throat [] Respiratory: Denies cough or shortness of breath [] Cardiovascular: No additional information not addressed in HPI [] GI: Denies abdominal pain, nausea, vomiting, bloody stools or diarrhea [] : Denies dysuria or hematuria [] Musculoskeletal: Denies back pain or joint pain [] Integument: Denies rash or skin lesions [] Neurologic: Denies headache, focal weakness or sensory changes [] Endocrine: Denies polyuria or polydipsia [] All other systems were reviewed and found to be within normal limits, except as documented in this note. Allergies Allergies Allergies Coded Allergies Type Severity Reaction Last Updated Verified No Known Drug Allergies 05/22/19 No Physical Exam Physical Exam Constitutional: Well developed, well nourished, no acute distress, non-toxic appearance. [] HENT: Normocephalic, atraumatic, bilateral external ears normal, oropharynx moist, no oral exudates, nose normal, left upper molar with large dental yuan, no evidence of abscess. [] Eyes: PERRLA, EOMI, conjunctiva normal, no discharge. [] Neck: Normal range of motion, no tenderness, supple, no stridor. No cervical lymphadenopathy [] Cardiovascular:Heart rate regular rhythm, no murmur [] Lungs & Thorax: Bilateral breath sounds clear to auscultation [] Skin: Warm, dry, no erythema, no rash. [] Extremities: No tenderness, no cyanosis, no clubbing, ROM intact, no edema. [] Neurologic: Alert and oriented X 3, normal motor function, normal sensory function, no focal deficits noted. [] Psychologic: Affect normal, judgement normal, mood normal. [] EKG EKG [] Radiology/Procedures Radiology/Procedures [] Heart Score Risk Factors: Risk Factors: DM, Current or recent (<one month) smoker, HTN, HLP, family history of CAD, obesity. Risk Scores: Risk Factors: DM, Current or recent (<one month) smoker, HTN, HLP, family history of CAD, obesity. Course & Med Decision Making Course & Med Decision Making Pertinent Labs and Imaging studies reviewed. (See chart for details) [Patient to start antibiotics, short-term prescription for pain medication as well, may take ibuprofen in between for more pain control. Patient tells me her oncologist has allowed her to take only ibuprofen or [place] for pain control due to the medications she is currently receiving. She does not currently have prescriptions for either 1 of these medications.] Dragon Disclaimer Dragon Disclaimer This electronic medical record was generated, in whole or in part, using a voice recognition dictation system. Departure Departure: Impression: Primary Impression: Toothache Disposition: HOME SELF CARE/HOMELESS Referrals: [facility] (PCP) Patient Instructions: Toothache-Brief Additional Instructions: Follow-up with dentist on Sunday as already scheduled. Scripts Hydrocodone Bit/Acetaminophen (NORCO 5-325 TABLET) 1 Each Tablet 1-2 TAB PO Q4-6HRS for pain, #10 TAB Prov: MACIE BUNDY APRN 03/16/20 Penicillin V Potassium (PENICILLIN V POTASSIUM) 500 Mg Tablet 1 TAB PO QID for dental pain, #40 TAB Prov: MACIE BUNDY APRN 03/16/20 MACIE BUNDY APRN Mar 16, 2020 19:38
== END 2020-03-16 20:40 | disposition home or self-care (01) ==
LOC: ER 19:06
DX: K02.9 Dental caries, unspecified (principal); F17.210 Nicotine dependence, cigarettes, uncomplicated
CPT/HCPCS: 99283

== ENCOUNTER 2020-03-28 20:07 | Emergency (ER) | payer OTHER ==
[~2020-03-28] VITALS: Ht 175.3 cm; Wt 70.1 kg
[~2020-03-28 20:07] MED LIST changes: +HYDR-3165 PO
[2020-03-28] MEDS ORDERED: IV NORMAL SALINE 1,000ML 1,000 ML IV ONE (20:30)
--- NOTE | 2020-03-28 20:43 | PHYS DOC ---
Past History Past Medical History: Cancer, Pneumonia, Other Additional Past Medical Histor: ON CHEMO FOR OVARIAN AND CERVICAL CA Past Surgical History: No Surgical History Additional Past Surgical Histo: lymphnoidectomy in neck Smoking: Cigarettes, Less than 1pk/day Alcohol Use: None Drug Use: None General Adult EDM: Chief Complaint: FLANK PAIN HPI: HPI: 29-year-old female presents with left flank pain. This started yesterday and felt like a like fluttering. It is now a moderate intensity sharp pain. It is intermittent. It is worse with deep breathing. Patient has history of gynecological cancers. She called her oncologist who asked her to come to the emergency room for evaluation. They could not get a CT scan ordered soon enough. Patient denies fever or chills. She denies falls or trauma. Review of Systems: Review of Systems: Constitutional: Denies fever or chills Eyes: Denies change in visual acuity HENT: Denies nasal congestion or sore throat Respiratory: Denies cough or shortness of breath Cardiovascular: Denies chest pain or edema GI: Denies abdominal pain, nausea, vomiting, bloody stools or diarrhea : Denies dysuria Musculoskeletal: Left flank pain Integument: Denies rash Neurologic: Denies headache, focal weakness or sensory changes Endocrine: Denies polyuria or polydipsia Lymphatic: Denies swollen glands Psychiatric: Denies depression or anxiety Current Medications: Current Meds: Current Medications Medications (Trade) Dose Ordered Sig/Chris Start Time Stop Time Status Last Admin Dose Admin Sodium Chloride 1,000 ml @ 1,000 mls/hr 1X ONCE 03/28/20 20:30 03/28/20 21:29 Allergies: Allergies: Allergies Coded Allergies Type Severity Reaction Last Updated Verified No Known Drug Allergies 05/22/19 No Physical Exam: PE: Constitutional: Well developed, well nourished, no acute distress, non-toxic appearance. [] HENT: Normocephalic, atraumatic, bilateral external ears normal, oropharynx moist, no oral exudates, nose normal. [] Eyes: PERRLA, EOMI, conjunctiva normal, no discharge. [] Neck: Normal range of motion, no tenderness, supple, no stridor. [] Cardiovascular: Heart rate regular rhythm, no murmur [] Lungs & Thorax: Bilateral breath sounds clear to auscultation [] Abdomen: Bowel sounds normal, soft, no tenderness, no masses, no pulsatile masses. [] Skin: Warm, dry, no erythema, no rash. [] Back: No tenderness, mild left CVA tenderness. [] Extremities: No tenderness, no cyanosis, no clubbing, ROM intact, no edema. [] Neurologic: Alert and oriented X 3, normal motor function, normal sensory function, no focal deficits noted. [] Psychologic: Affect normal, judgement normal, mood normal. [] Current Patient Data: Labs: Laboratory Tests Test 03/28/20 20:29 POC Urine HCG, Qualitative hcg negative (Negative) EKG: EKG: [] Radiology/Procedures: Radiology/Procedures: [] Impressions: Exam: CT of abdomen and pelvis with contrast INDICATION: Flank pain TECHNIQUE: Sequential axial images through the abdomen and pelvis obtained following the administration of 75 mL of Omni 300 IV contrast. Sagittal and coronal reformatted images were reconstructed from the axial data and reviewed. Comparisons: 10/24/2019 FINDINGS: Heart size is normal. No pericardial effusion. Strandy opacities at the dependent portion lungs likely representing atelectasis. No pleural effusion. Liver, spleen, pancreas, gallbladder and adrenals are unremarkable. No perinephric inflammation or hydronephrosis. No renal or ureteral calculi are identified. Bladder is decompressed not well evaluated. Uterus is nonenlarged. Fluid noted within the endometrial canal. Large and small bowel are unremarkable. Appendix is normal. No free abdominal air or fluid. No obstruction. Abdominal aorta has a normal course and caliber. Abdominal vasculature is patent. No enlarged abdominal lymph nodes are identified. No suspicious osseous lesions or acute fractures. IMPRESSION: 1. Fluid density noted within the endometrium which is nonspecific. Recommend correlation with ultrasound. 2. No renal or ureteral calculi. No evidence for obstructive uropathy. Exposure: One or more of the following in the visualized dose reduction techniques were utilized for this examination: 1. Automated exposure control 2. Adjustment of the MA and/or KV according to patient size 3. Use of iterative of reconstructive technique Electronically signed by: Gisel Feldman MD (03/28/2020 9:25 PM) [id number] DICTATED AND SIGNED BY: GISEL FELDMAN MD DATE: 03/28/202124 CC: LAUREEN GRIFFIN DO; PCP,NO ~ Exam: Ultrasound pelvis Indication: Fluid in the endometrium Technique: Real-time grayscale and color Doppler images of the pelvis were obtained by the department investor relations manager. Comparisons: None FINDINGS: Uterus measures 7.5 x 6.2 x 4.5 cm. There is a moderate amount of fluid noted within the endometrium. Right ovary measures 2.8 x 2.3 x 2.2 cm. Left ovary measures 1.9 x 1.4 x 1.2 cm. Vascular flow identified within the ovaries bilaterally. No free fluid. IMPRESSION: 1. Simple appearing fluid within the endometrium. Given history of malignancy treatment this could be treatment related. 2. Normal sonographic appearance of the ovaries. Electronically signed by: Gisel Feldman MD (03/28/2020 10:55 PM) [id number] DICTATED AND SIGNED BY: GISEL FELDMAN MD DATE: 03/28/202254 CC: LAUREEN GRIFFIN DO; PCP,NO ~ Heart Score: Risk Factors: Risk Factors: DM, Current or recent (<one month) smoker, HTN, HLP, family history of CAD, obesity. Risk Scores: Score 0 - 3: 2.5% MACE over next 6 weeks - Discharge Home Score 4 - 6: 20.3% MACE over next 6 weeks - Admit for Clinical Observation Score 7 - 10: 72.7% MACE over next 6 weeks - Early Invasive Strategies Course & Med Decision Making: Course & Med Decision Making Pertinent Labs and Imaging studies reviewed. (See chart for details) The patient's labs are unremarkable. Her urinalysis is negative for infection but does show blood. CT scan shows fluid in the uterus. An ultrasound was recommended. See official read for more details. An ultrasound was ordered. The ultrasound showed a simple fluid in the uterus. No other significant abnormality seen. See official read for more details. Not exactly sure what is causing the patient's pain. Have given her a couple doses of pain medication. She is stable for discharge at this time. [] Dragon Disclaimer: Dragon Disclaimer: This electronic medical record was generated, in whole or in part, using a voice recognition dictation system. Departure Departure: Impression: Primary Impression: Left flank pain Disposition: 01 DC HOME SELF CARE/HOMELESS Condition: STABLE Referrals: PCP,NO (PCP) Patient Instructions: Flank Pain, [id number] LAUREEN GRIFFIN DO Mar 28, 2020 20:43
[2020-03-28] MEDS ORDERED: IOHEXOL 300 MG/ML 75 ML VIAL. IV ONE (20:45)
[2020-03-28] MEDS ORDERED: CONTRAST GIVEN. MC PRN (21:00)
[2020-03-28 21:03] LABS: BACTERIA,URINE 0 /HPF (0-FEW); BILIRUBIN,URINE NEG (NEG); CLARITY,URINE CLEAR; COLOR,URINE YELLOW; GLUCOSE,URINE NEG (NEG); NITRITE,URINE NEG (NEG); RBC,URINE 20-40 /HPF (0-2); SQUAMOUS EPITHELIAL CELL,UR FEW /LPF; UROBILINOGEN,URINE 0.2 mg/dL (0.2 mg/dL)
[2020-03-28 21:15] LABS: BASO % 1 % (0-3); EOS # 0.3 x10^3/uL (0.0-0.7); EOS % 5 % (0-3); HEMATOCRIT 38.1 % (36.0-47.0); HEMOGLOBIN 12.7 g/dL (12.0-15.5); LYMPH % 17 % (24-48); MEAN CORPUSCULAR HEMOGLOBIN 31 pg (25-35); MEAN CORPUSCULAR HGB CONC 33 g/dL (31-37); MEAN CORPUSCULAR VOLUME 94 fL (79-100); MONO # 0.4 x10^3/uL (0.0-1.1); MONO % 8 % (0-9); NEUT # 3.9 x10^3uL (1.8-7.7); NEUT % 69 % (31-73); PLATELET COUNT 271 x10^3/uL (140-400); RED BLOOD COUNT 4.08 x10^6/uL (3.50-5.40); RED CELL DISTRIBUTION WIDTH 16.4 % (11.5-14.5); WHITE BLOOD COUNT 5.6 x10^3/uL (4.0-11.0)
--- NOTE | 2020-03-28 21:28 | RAD ---
Exam: CT of abdomen and pelvis with contrast INDICATION: Flank pain TECHNIQUE: Sequential axial images through the abdomen and pelvis obtained following the administration of 75 mL of Omni 300 IV contrast. Sagittal and coronal reformatted images were reconstructed from the axial data and reviewed. Comparisons: 10/24/2019 FINDINGS: Heart size is normal. No pericardial effusion. Strandy opacities at the dependent portion lungs likely representing atelectasis. No pleural effusion. Liver, spleen, pancreas, gallbladder and adrenals are unremarkable. No perinephric inflammation or hydronephrosis. No renal or ureteral calculi are identified. Bladder is decompressed not well evaluated. Uterus is nonenlarged. Fluid noted within the endometrial canal. Large and small bowel are unremarkable. Appendix is normal. No free abdominal air or fluid. No obstruction. Abdominal aorta has a normal course and caliber. Abdominal vasculature is patent. No enlarged abdominal lymph nodes are identified. No suspicious osseous lesions or acute fractures. IMPRESSION: 1. Fluid density noted within the endometrium which is nonspecific. Recommend correlation with ultrasound. 2. No renal or ureteral calculi. No evidence for obstructive uropathy. Exposure: One or more of the following in the visualized dose reduction techniques were utilized for this examination: 1. Automated exposure control 2. Adjustment of the MA and/or KV according to patient size 3. Use of iterative of reconstructive technique Electronically signed by: Goyo Roldan MD (03/28/2020 9:25 PM) [id number]
[2020-03-28 21:31] LABS: CALCIUM 9.3 mg/dL (8.5-10.1); CREATININE 0.9 mg/dL (0.6-1.0); GFR 75.1; POTASSIUM 3.7 mmol/L (3.5-5.1)
[2020-03-28 21:33] LABS: ALBUMIN 3.8 g/dL (3.4-5.0); TOTAL BILIRUBIN 0.1 mg/dL (0.2-1.0); TOTAL PROTEIN 7.8 g/dL (6.4-8.2)
[2020-03-28] MEDS ORDERED: MORPHINE SULFATE 4 MG/ML DISP.SYRIN. IV ONE (22:45)
--- NOTE | 2020-03-28 22:58 | RAD ---
Exam: Ultrasound pelvis Indication: Fluid in the endometrium Technique: Real-time grayscale and color Doppler images of the pelvis were obtained by the department coffee bar attendant. Comparisons: None FINDINGS: Uterus measures 7.5 x 6.2 x 4.5 cm. There is a moderate amount of fluid noted within the endometrium. Right ovary measures 2.8 x 2.3 x 2.2 cm. Left ovary measures 1.9 x 1.4 x 1.2 cm. Vascular flow identified within the ovaries bilaterally. No free fluid. IMPRESSION: 1. Simple appearing fluid within the endometrium. Given history of malignancy treatment this could be treatment related. 2. Normal sonographic appearance of the ovaries. Electronically signed by: Goyo Roldan MD (03/28/2020 10:55 PM) [id number]
[2020-03-28 23:25] VITALS: BP 114/72
== END 2020-03-28 23:35 | disposition home or self-care (01) ==
LOC: ER 20:07
DX: R10.9 Unspecified abdominal pain (principal); F17.210 Nicotine dependence, cigarettes, uncomplicated; Z85.9 Personal history of malignant neoplasm, unspecified; Z98.890 Other specified postprocedural states
CPT/HCPCS: 36415; 74177; 76856; 80053; 81001; 81025; 85025; 87086; 96374; 99285; J2270; J7030; Q9967

== ENCOUNTER 2020-05-18 17:13 | Emergency (ER) | payer OTHER ==
[~2020-05-18] VITALS: Ht 175.3 cm; Wt 70.1 kg
[~2020-05-18 17:13] MED LIST changes: -CLIN300C8 PO; +CLIN300C9 PO
[2020-05-18] MEDS ORDERED: IOHEXOL 300 MG/ML 75 ML VIAL. IV ONE (18:15)
[2020-05-18 19:08] LABS: BASO % 0 % (0-3); EOS # 0.1 x10^3/uL (0.0-0.7); EOS % 2 % (0-3); HEMATOCRIT 37.8 % (36.0-47.0); HEMOGLOBIN 12.8 g/dL (12.0-15.5); LYMPH # 0.9 x10^3/uL (1.0-4.8); LYMPH % 11 % (24-48); MEAN CORPUSCULAR HEMOGLOBIN 30 pg (25-35); MEAN CORPUSCULAR HGB CONC 34 g/dL (31-37); MEAN CORPUSCULAR VOLUME 90 fL (79-100); MONO # 0.5 x10^3/uL (0.0-1.1); MONO % 7 % (0-9); NEUT # 6.3 x10^3uL (1.8-7.7); NEUT % 80 % (31-73); PLATELET COUNT 362 x10^3/uL (140-400); RED BLOOD COUNT 4.22 x10^6/uL (3.50-5.40); RED CELL DISTRIBUTION WIDTH 13.2 % (11.5-14.5); WHITE BLOOD COUNT 7.9 x10^3/uL (4.0-11.0)
--- NOTE | 2020-05-18 19:08 | RAD ---
CT SCAN OF THE ABDOMEN AND PELVIS WITH IV CONTRAST. History: Abdominal pain Comparison:March 28, 2020. Procedure: Contiguous axial images of the abdomen and pelvis were performed after the administration of 75 cc o f Isovue 370 IV contrast. Oral contrast: No. Findings: The gallbladder is not fully distended but appears normal. The appendix is normal. The colon is collapsed limiting its evaluation. The ovaries are not well seen. Liver: Unremarkable Spleen: Unremarkable Pancreas: Unremarkable Adrenal Glands: Unremarkable Kidneys: There is moderate right hydroureter and right hydronephrosis. The urinary bladder is partial ly collapsed. There is apparent moderate wall thickening. There is mild free fluid the pelvis. There is fluid in the endometrium of the uterus and there is now air and fluid in the lower uterine segment and vaginal vault. There is no mass or lymphadenopathy. There is no free air. The urinary bladder appears normal. Impression: 1. Distention of the endometrium with fluid was seen previously however there is now air and fluid in the lower uterine segment and vaginal vault. This is nonspecific however infection is possible. 2. Moderate right hydronephrosis and right hydroureter was not present previously. There is no radiop aque stone identified. There is possible this is caused by inflammatory changes in the pelvis. 3. The urinary bladder is collapsed not well evaluated however there is apparent moderate wall thicke na and enhancement. Recommend correlation with urinary analysis. End impression PQRS Compliance Statement: One or more of the following individualized dose reduction techniques were utilized for this examinat ion: 1. Automated exposure control 2. Adjustment of the mA and/or kV according to patient size 3. Use of iterative reconstruction technique Electronically signed by: Brian Núñez III, MD (05/18/2020 7:06 PM) [facility]
[2020-05-18] MEDS ORDERED: ONDANSETRON ODT 4 MG TAB.RAPDIS PO ONE (19:15)
[2020-05-18] MEDS ORDERED: traMADol 50 MG TABLET PO ONE (19:15)
[2020-05-18] MEDS ORDERED: HYDROcodone/APAP 7.5/325MG 1 TAB TABLET PO ONE (19:15)
[2020-05-18 19:19] LABS: CALCIUM 9.3 mg/dL (8.5-10.1); CREATININE 0.7 mg/dL (0.6-1.0); GFR 100.4; POTASSIUM 3.7 mmol/L (3.5-5.1)
[2020-05-18 19:20] LABS: BACTERIA,URINE 0 /HPF (0-FEW); BILIRUBIN,URINE NEG (NEG); CLARITY,URINE CLEAR; COLOR,URINE YELLOW; GLUCOSE,URINE NEG (NEG); NITRITE,URINE NEG (NEG); SQUAMOUS EPITHELIAL CELL,UR MOD /LPF
[2020-05-18 19:23] LABS: UROBILINOGEN,URINE 0.2 mg/dL (0.2 mg/dL)
[2020-05-18 19:25] LABS: ALBUMIN 3.6 g/dL (3.4-5.0); ALBUMIN/GLOBULIN RATIO 0.8 (1.0-1.7); TOTAL BILIRUBIN 0.1 mg/dL (0.2-1.0); TOTAL PROTEIN 8.1 g/dL (6.4-8.2)
[2020-05-18] MEDS ORDERED: ONDANSETRON PF 4 MG/2 ML VIAL. IVP ONE (19:30)
--- NOTE | 2020-05-18 20:10 | PHYS DOC ---
Past History Past Medical History: Cancer, Pneumonia, Other Additional Past Medical Histor: ON break from CHEMO FOR OVARIAN AND CERVICAL CA, SHINGLES, CAT SCRATCH FEVE Past Surgical History: Other Additional Past Surgical Histo: lymphnoidectomy in neck Smoking: Cigarettes, Less than 1pk/day Alcohol Use: None Drug Use: None General Adult EDM: Chief Complaint: ABDOMINAL PAIN HPI: HPI: Patient is a 9-year-old female presents with abdominal pain. Patient has a history of ovarian, cervical cancer. Patient states that she feels like she has a lot of pressure in her pelvis and abdomen like she needs to have a bowel movement. Patient denies nausea and vomiting. Patient called her PCP today who suggested she come to the ER to have a CT done and to have pain managed. Owen ritter reports ports finishing chemo on 02/10. And has a PET scan scheduled for the end of this month. Review of Systems: Review of Systems: Constitutional: Denies fever or chills Eyes: Denies change in visual acuity HENT: Denies nasal congestion or sore throat Respiratory: Denies cough or shortness of breath Cardiovascular: Denies chest pain or edema GI: Reports abdominal pain, denies nausea, vomiting, bloody stools or diarrhea : Denies dysuria Musculoskeletal: Denies back pain or joint pain Integument: Denies rash Neurologic: Denies headache, focal weakness or sensory changes Endocrine: Denies polyuria or polydipsia Lymphatic: Denies swollen glands Psychiatric: Denies depression or anxiety Current Medications: Current Meds: Current Medications Medications (Trade) Dose Ordered Sig/Chris Start Time Stop Time Status Last Admin Dose Admin Acetaminophen/ Hydrocodone Bitart (Lortab 7.5/325) 1 tab 1X ONCE 05/18/20 19:15 05/18/20 19:36 DC Fentanyl Citrate (Fentanyl 2ml Vial) 50 mcg 1X ONCE 05/18/20 19:30 05/18/20 19:42 DC 05/18/20 19:59 50 MCG Iohexol (Omnipaque 300 Mg/ml) 75 ml 1X ONCE 05/18/20 18:15 05/18/20 18:23 DC 05/18/20 18:38 75 ML Ondansetron HCl (Zofran Odt) 4 mg 1X ONCE 05/18/20 19:15 05/18/20 19:36 DC Ondansetron HCl (Zofran) 4 mg 1X ONCE 05/18/20 19:30 05/18/20 19:42 DC 05/18/20 19:59 4 MG Tramadol HCl (Ultram) 50 mg 1X ONCE 05/18/20 19:15 05/18/20 19:36 DC Allergies: Allergies: Allergies Coded Allergies Type Severity Reaction Last Updated Verified No Known Drug Allergies 05/22/19 No Physical Exam: PE: Constitutional: Well developed, well nourished, no acute distress, non-toxic appearance. [] HENT: Normocephalic, atraumatic, bilateral external ears normal, oropharynx moist, no oral exudates, nose normal. [] Eyes: PERRLA, EOMI, conjunctiva normal, no discharge. [] Neck: Normal range of motion, no tenderness, supple, no stridor. [] Cardiovascular:Heart rate regular rhythm, no murmur [] Lungs & Thorax: Bilateral breath sounds clear to auscultation [] Abdomen: Bowel sounds normal, soft, no tenderness, no masses, no pulsatile masses. [] Skin: Warm, dry, no erythema, no rash. [] Back: No tenderness, no CVA tenderness. [] Extremities: No tenderness, no cyanosis, no clubbing, ROM intact, no edema. [] Neurologic: Alert and oriented X 3, normal motor function, normal sensory func tion, no focal deficits noted. [] Psychologic: Affect normal, judgement normal, mood normal. [] Current Patient Data: Labs: Laboratory Tests Test 05/18/20 18:24 05/18/20 18:25 05/18/20 18:40 POC Urine HCG, Qualitative hcg negative (Negative) White Blood Count 7.9 x10^3/uL (4.0-11.0) Red Blood Count 4.22 x10^6/uL (3.50-5.40) Hemoglobin 12.8 g/dL (12.0-15.5) Hematocrit 37.8 % (36.0-47.0) Mean Corpuscular Volume 90 fL (79-100) Mean Corpuscular Hemoglobin 30 pg (25-35) Mean Corpuscular Hemoglobin Concent 34 g/dL (31-37) Red Cell Distribution Width 13.2 % (11.5-14.5) Platelet Count 362 x10^3/uL (140-400) Neutrophils (%) (Auto) 80 % (31-73) H Lymphocytes (%) (Auto) 11 % (24-48) L Monocytes (%) (Auto) 7 % (0-9) Eosinophils (%) (Auto) 2 % (0-3) Basophils (%) (Auto) 0 % (0-3) Neutrophils # (Auto) 6.3 x10^3uL (1.8-7.7) Lymphocytes # (Auto) 0.9 x10^3/uL (1.0-4.8) L Monocytes # (Auto) 0.5 x10^3/uL (0.0-1.1) Eosinophils # (Auto) 0.1 x10^3/uL (0.0-0.7) Basophils # (Auto) 0.0 x10^3/uL (0.0-0.2) Urine Collection Type Unknown Urine Color Yellow Urine Clarity Clear Urine pH 8.5 Urine Specific [place] 1.020 Urine Protein Neg (NEG-TRACE) Urine Glucose (UA) Neg mg/dL (NEG) Urine Ketones (Stick) Neg mg/dL (NEG) Urine Blood Trace (NEG) Urine Nitrite Neg (NEG) Urine Bilirubin Neg (NEG) Urine Urobilinogen Dipstick 0.2 mg/dL (0.2 mg/dL) Urine Leukocyte Esterase Trace (NEG) Urine RBC 1-2 /HPF (0-2) Urine WBC 5-10 /HPF (0-4) Urine Squamous Epithelial Cells Mod /LPF Urine Bacteria 0 /HPF (0-FEW) Sodium Level 138 mmol/L (136-145) Potassium Level 3.7 mmol/L (3.5-5.1) Chloride Level 102 mmol/L (98-107) Carbon Dioxide Level 31 mmol/L (21-32) Anion Gap 5 (6-14) L Blood Urea Nitrogen 10 mg/dL (7-20) Creatinine 0.7 mg/dL (0.6-1.0) Estimated GFR (Cockcroft-Gault) 100.4 BUN/Creatinine Ratio 14 (6-20) Glucose Level 96 mg/dL (70-99) Calcium Level 9.3 mg/dL (8.5-10.1) Total Bilirubin 0.1 mg/dL (0.2-1.0) L Aspartate Amino Transferase (AST) 23 U/L (15-37) Alanine Aminotransferase (ALT) 42 U/L (14-59) Alkaline Phosphatase 97 U/L (46-116) Total Protein 8.1 g/dL (6.4-8.2) Albumin 3.6 g/dL (3.4-5.0) Albumin/Globulin Ratio 0.8 (1.0-1.7) L Vital Signs: Vital Signs Date Time Temp Pulse Resp B/P (MAP) Pulse Ox O2 Delivery O2 Flow Rate FiO2 05/18/20 19:59 16 98 Room Air 05/18/20 17:24 99.7 73 126/74 (91) EKG: EKG: [] Radiology/Procedures: Radiology/Procedures: []CT SCAN OF THE ABDOMEN AND PELVIS WITH IV CONTRAST. History: Abdominal pain Comparison:March 28, 2020. Procedure: Contiguous axial images of the abdomen and pelvis were performed after the administration of 75 cc of Isovue 370 IV contrast. Oral contrast: No. Findings: The gallbladder is not fully distended but appears normal. The appendix is normal. The colon is collapsed limiting its evaluation. The ovaries are not well seen. Liver: Unremarkable Spleen: Unremarkable Pancreas: Unremarkable Adrenal Glands: Unremarkable Kidneys: There is moderate right hydroureter and right hydronephrosis. The urinary bladder is partially collapsed. There is apparent moderate wall thickening. There is mild free fluid the pelvis. There is fluid in the endometrium of the uterus and there is now air and fluid in the lower uterine segment and vaginal vault. There is no mass or lymphadenopathy. There is no free air. The urinary bladder appears normal. Impression: 1. Distention of the endometrium with fluid was seen previously however there is now air and fluid in the lower uterine segment and vaginal vault. This is nonspecific however infection is possible. 2. Moderate right hydronephrosis and right hydroureter was not present previously. There is no radiopaque stone identified. There is possible this is caused by inflammatory changes in the pelvis. 3. The urinary bladder is collapsed not well evaluated however there is apparent moderate wall thickening and enhancement. Recommend correlation with urinary analysis. End impression PQRS Compliance Statement: One or more of the following individualized dose reduction techniques were utilized for this examination: 1. Automated exposure control 2. Adjustment of the mA and/or kV according to patient size 3. Use of iterative reconstruction technique Electronically signed by: Danilo Sr III, MD (05/18/2020 7:06 PM) [facility] DICTATED AND SIGNED BY: DANILO SR III, MD DATE: 05/18/201855 CC: HARRY SALMON APRN; PCP,NO ~MTH0 0 Heart Score: Risk Factors: Risk Factors: DM, Current or recent (<one month) smoker, HTN, HLP, family history of CAD, obesity. Risk Scores: Score 0 - 3: 2.5% MACE over next 6 weeks - Discharge Home Score 4 - 6: 20.3% MACE over next 6 weeks - Admit for Clinical Observation Score 7 - 10: 72.7% MACE over next 6 weeks - Early Invasive Strategies Course & Med Decision Making: Course & Med Decision Making Pertinent Labs and Imaging studies reviewed. (See chart for details) []Patient is a 9-year-old female presents with abdominal pain. Patient has a history of ovarian, cervical cancer. Patient states that she feels like she has a lot of pressure in her pelvis and abdomen like she needs to have a bowel movement. Patient denies nausea and vomiting. Patient called her PCP today who suggested she come to the ER to have a CT done and to have pain managed. Zeus patiño reports ports finishing chemo on 02/10. And has a PET scan scheduled for the end of this month. CT abdomen and pelvis ordered to rule out mets. Fentanyl and Zofran given to patient for pain control. CT abdomen and pelvis showed no abnormalities or mets to other organs. UA positive for WBC, blood, Le[place]. ABX at home. Patient to follow-up with PCP for further pain management. Patient's vitals are stable Ellen Disclaimer: Ellen Disclaimer: This electronic medical record was generated, in whole or in part, using a voice recognition dictation system. Departure Departure: Impression: Primary Impression: Abdominal pain Qualified Codes: R10.30 - Lower abdominal pain, unspecified Disposition: 01 DC HOME SELF CARE/HOMELESS Condition: GOOD Referrals: PCP,NO (PCP) Patient Instructions: Abdominal Pain Additional Instructions: CT of abdomen and pelvis today were negative. Please continue your pain medication at home prescribed by your PCP. Please follow-up with your PCP to further evaluate pain and management. Return to ER with worsening symptoms or concerns.EMERGENCY DEPARTMENT GENERAL DISCHARGE INSTRUCTIONS Thank you for coming to [facility] (ED) today and trusting us with you care. We trust that you had a positivie experience in our Emergency Department. If you wish to speak to the department management, you may call the director at [phone]. YOUR FOLLOW UP INSTRUCTIONS ARE FOLLOWS: 1. Do you have a private Doctor? If you do not have a private doctor, please ask for a resource list of physicians or clinics that may be able to assist you with follow up care. 2. The Emergency Physician has interpreted your x-rays. The X-Ray specialist will also review them. If there is a change in the findings, you will be notified in 48 hours when at all possible. 3. A lab test or culture has been done, your results will be reviewed and you will be notified if you need a change in treatment. ADDITIONAL INSTRUCTIONS AND INFORMATION: 1. Your care today has been supervised by a physician who is specially trained in emergency care. Many problems require more than one evaluation for a complete diagnosis and treatment. We recommend that you schedule your follow up appointment as recommended to ensure complete treatment of you illness or injury. If you are unable to obtain follow up care and continue to have a problem, or if your condition worsens, we recommend that you return to the ED. 2. We are not able to safely determine your condition over the phone nor are we able to give sound medical advice over the phone. For these safety reasons, if you call for medical advice we will ask you to come to the ED for further evaluation. 3. If you have any questions regarding these discharge instructions please call the ED at [phone]. SAFETY INFORMATION: In the interest of safety, wellness, and injury prevention; we encourage you to wear your sealbelt, if you smoke; quite smoking, and we encourage family to use a protective helmet for bicycling and other sporting events that present an increased risk for head injury. IF YOUR SYMPTOMS WORSEN OR NEW SYMPTOMS DEVELOP, OR YOU HAVE CONCERNS ABOUT YOUR CONDITION; OR IF YOUR CONDITION WORSENS WHILE YOU ARE WAITING FOR YOUR FOLLOW UP APPOINTMENT; EITHER CONTACT YOUR PRIMARY CARE DOCTOR, THE PHYSICIAN WHOSE NAME AND NUMBER YOU WERE GIVEN, OR RETURN TO THE ED IMMEDIATELY. Scripts Phenazopyridine Hcl (PHENAZOPYRIDINE HCL) 200 Mg Tablet 200 MG PO TID for urinary pain for 2 Days, #6 TAB Prov: HARRY SALMON APRN 05/18/20 Nitrofurantoin Macrocrystal (NITROFURANTOIN) 100 Mg Capsule 100 MG PO BID for uti for 5 Days, #10 CAP Prov: HARRY SALMON SWEEP MOLDER 05/18/20 Nitrofurantoin Macrocrystal (NITROFURANTOIN) 100 Mg Capsule 100 MG PO BID for uti for 5 Days, #10 CAP 100 MG PO, BID, x 5 days Prov: HARRY SALMON APRN 05/18/20 HARRY SALMON APRN May 18, 2020 20:10
[2020-05-18] MEDS ORDERED: NITR100C PO ×2 (20:33→20:42)
[2020-05-18] MEDS ORDERED: PHEN-444 PO (20:45)
[2020-05-18 20:50] VITALS: BP 139/70
[2020-05-18] MEDS ORDERED: NITROFURANTOIN MONOHYD/M-CRYST 100 MG CAPSULE. PO SCH (21:00)
== END 2020-05-18 20:50 | disposition home or self-care (01) ==
LOC: ER 17:13
DX: R10.30 Lower abdominal pain, unspecified (principal); F17.210 Nicotine dependence, cigarettes, uncomplicated
CPT/HCPCS: 36415; 74177; 80048; 80053; 81001; 81025; 85025; 87086; 96374; 96375; 99285; J2405; J3010; Q9967